=== PATIENT | female | born 1950 | race Caucasian/White ===

== ENCOUNTER 2016-05-06 08:55 | Outpatient (CLI) | payer MEDICARE ==
[2016-05-06 09:40] LABS: ALT (SGPT) 31 U/L (0-55); AST (SGOT) 32 U/L (5-34); Alkaline Phosphatase 157 U/L (40-150); Anion Gap 13 mmol/L (10-20); BUN (Urea Nitrogen) 30 mg/dL (9.8-20.1); Bilirubin, Total 2.2 mg/dL (0.2-1.2); Calc. Creatinine Clearance 0 mL/min (70-130); Calcium 8.4 mg/dL (7.8-10.44); Carbon Dioxide 19 mmol/L (23-31); Chloride 111 mmol/L (98-107); Estimated GFR-MDRD 42; Globulin 3.2 g/dL (2.4-3.5); Protein, Total 6.3 g/dL (5.8-8.1)
[2016-05-06 10:34] LABS: Hematocrit 27.1 % (36.0-47.0); Mean Platelet Volume 15.9 fL (7.4-10.4); Red Blood Cell (RBC) Count 3.17 mill/uL (4.20-5.40); White Blood Cell (WBC) Count 4.4 thou/uL (4.8-10.8)
[2016-05-06 10:36] LABS: Anisocytosis SLIGHT = 6-15 cells (100X) (0-5/hpf); Band 4 % (5-11); Blast 1 % (0-0); Hypochromia SLIGHT = 6-15 cells (100X) (0-5/hpf); Neutrophil 82 % (42-75)
== END 2016-05-06 08:56 | disposition home or self-care (01) ==
LOC: NAV LABSP 08:55
PROVIDERS: ATTEND Family Medicine
DX: I12.9 Hypertensive chronic kidney disease with stage 1 through stage 4 chronic kidney disease, or unspecified chronic kidney disease (principal); N18.3 Chronic kidney disease, stage 3 (moderate); E11.9 Type 2 diabetes mellitus without complications; R09.02 Hypoxemia
CPT/HCPCS: 36415; 80053; 83036; 84439; 84443; 85025

== ENCOUNTER 2016-05-09 07:32 | Outpatient (CLI) | payer MEDICARE, OTHER ==
[2016-05-09 10:01] LABS: Anisocytosis SLIGHT = 6-15 cells (100X) (0-5/hpf); Band 2 % (5-11); Hematocrit 26.1 % (36.0-47.0); Hypochromia SLIGHT = 6-15 cells (100X) (0-5/hpf); Mean Platelet Volume 13.8 fL (7.4-10.4); Red Blood Cell (RBC) Count 3.01 mill/uL (4.20-5.40); White Blood Cell (WBC) Count 3.3 thou/uL (4.8-10.8)
[2016-05-09 10:02] LABS: Neutrophil 75 % (42-75)
== END 2016-05-09 07:33 | disposition home or self-care (01) ==
LOC: NAV LABSP 07:32
PROVIDERS: ATTEND Family Medicine
DX: K74.69 Other cirrhosis of liver (principal); J96.91 Respiratory failure, unspecified with hypoxia; N18.3 Chronic kidney disease, stage 3 (moderate); I10 Essential (primary) hypertension; D69.1 Qualitative platelet defects; E11.9 Type 2 diabetes mellitus without complications
CPT/HCPCS: 36415; 85025

== ENCOUNTER 2016-05-30 16:30 | Outpatient (CLI) | payer MEDICARE ==
[2016-05-30 17:21] LABS: Anion Gap 15 mmol/L (10-20); BUN (Urea Nitrogen) 35 mg/dL (9.8-20.1); Calc. Creatinine Clearance 0 mL/min (70-130); Carbon Dioxide 20 mmol/L (23-31); Chloride 109 mmol/L (98-107); Estimated GFR-MDRD 38
== END 2016-05-30 16:31 | disposition home or self-care (01) ==
LOC: NAV LABSP 16:30
PROVIDERS: ATTEND Internal Medicine
DX: R60.9 Edema, unspecified (principal)
CPT/HCPCS: 80048

== ENCOUNTER 2016-06-07 12:06 | Outpatient (CLI) | payer MEDICARE ==
[2016-06-07 12:36] LABS: Anion Gap 15 mmol/L (10-20); BUN (Urea Nitrogen) 29 mg/dL (9.8-20.1); Calc. Creatinine Clearance 0 mL/min (70-130); Calcium 8.1 mg/dL (7.8-10.44); Carbon Dioxide 22 mmol/L (23-31); Chloride 112 mmol/L (98-107); Estimated GFR-MDRD 34
== END 2016-06-07 12:07 | disposition home or self-care (01) ==
LOC: NAV LABSP 12:06
PROVIDERS: ATTEND Internal Medicine
DX: E87.70 Fluid overload, unspecified (principal); I10 Essential (primary) hypertension
CPT/HCPCS: 36415; 80048

== ENCOUNTER 2016-06-08 07:22 | Outpatient (CLI) | payer MEDICARE ==
[2016-06-08 09:05] LABS: Anion Gap 13 mmol/L (10-20); BUN (Urea Nitrogen) 30 mg/dL (9.8-20.1); Calc. Creatinine Clearance 0 mL/min (70-130); Calcium 8.1 mg/dL (7.8-10.44); Carbon Dioxide 24 mmol/L (23-31); Chloride 112 mmol/L (98-107); Estimated GFR-MDRD 31
== END 2016-06-08 07:23 | disposition home or self-care (01) ==
LOC: NAV LABSP 07:22
PROVIDERS: ATTEND Internal Medicine
DX: I10 Essential (primary) hypertension (principal)
CPT/HCPCS: 36415; 80048

== ENCOUNTER 2016-06-09 07:13 | Outpatient (CLI) | payer MEDICARE ==
[2016-06-09 08:20] LABS: Anion Gap 11 mmol/L (10-20); BUN (Urea Nitrogen) 30 mg/dL (9.8-20.1); Calc. Creatinine Clearance 0 mL/min (70-130); Calcium 8.1 mg/dL (7.8-10.44); Carbon Dioxide 24 mmol/L (23-31); Chloride 112 mmol/L (98-107); Estimated GFR-MDRD 34
== END 2016-06-09 07:14 | disposition home or self-care (01) ==
LOC: NAV LABSP 07:13
PROVIDERS: ATTEND Internal Medicine
DX: I10 Essential (primary) hypertension (principal)
CPT/HCPCS: 36415; 80048

== ENCOUNTER 2016-06-10 09:52 | Outpatient (CLI) | payer MEDICARE ==
[2016-06-10 11:52] LABS: Anion Gap 16 mmol/L (10-20); BUN (Urea Nitrogen) 31 mg/dL (9.8-20.1); Calc. Creatinine Clearance 0 mL/min (70-130); Calcium 8.2 mg/dL (7.8-10.44); Carbon Dioxide 20 mmol/L (23-31); Chloride 113 mmol/L (98-107); Estimated GFR-MDRD 36
== END 2016-06-10 09:53 | disposition home or self-care (01) ==
LOC: NAV LAB 09:52
PROVIDERS: ATTEND Internal Medicine
DX: I10 Essential (primary) hypertension (principal)
CPT/HCPCS: 36415; 80048

== ENCOUNTER 2016-06-13 09:01 | Outpatient (CLI) | payer MEDICARE ==
[2016-06-13 10:02] LABS: Anion Gap 15 mmol/L (10-20); BUN (Urea Nitrogen) 34 mg/dL (9.8-20.1); Calc. Creatinine Clearance 0 mL/min (70-130); Calcium 8.2 mg/dL (7.8-10.44); Carbon Dioxide 23 mmol/L (23-31); Chloride 111 mmol/L (98-107); Estimated GFR-MDRD 30
== END 2016-06-13 09:02 | disposition home or self-care (01) ==
LOC: NAV LABSP 09:01
PROVIDERS: ATTEND Internal Medicine
DX: K72.00 Acute and subacute hepatic failure without coma (principal)
CPT/HCPCS: 36415; 80048

== ENCOUNTER 2016-06-14 08:11 | Outpatient (CLI) | payer MEDICARE ==
[2016-06-14 09:56] LABS: Anion Gap 14 mmol/L (10-20); BUN (Urea Nitrogen) 37 mg/dL (9.8-20.1); Calc. Creatinine Clearance 0 mL/min (70-130); Calcium 8.3 mg/dL (7.8-10.44); Carbon Dioxide 24 mmol/L (23-31); Chloride 111 mmol/L (98-107); Estimated GFR-MDRD 26
== END 2016-06-14 08:12 | disposition home or self-care (01) ==
LOC: NAV LABSP 08:11
PROVIDERS: ATTEND Internal Medicine
DX: I10 Essential (primary) hypertension (principal)
CPT/HCPCS: 36415; 80048

== ENCOUNTER 2016-06-15 07:31 | Outpatient (CLI) | payer MEDICARE ==
[2016-06-15 10:05] LABS: Anion Gap 16 mmol/L (10-20); BUN (Urea Nitrogen) 39 mg/dL (9.8-20.1); Calc. Creatinine Clearance 0 mL/min (70-130); Calcium 8.3 mg/dL (7.8-10.44); Carbon Dioxide 24 mmol/L (23-31); Chloride 109 mmol/L (98-107); Estimated GFR-MDRD 25
== END 2016-06-15 07:32 | disposition home or self-care (01) ==
LOC: NAV LABSP 07:31
PROVIDERS: ATTEND Internal Medicine
DX: I10 Essential (primary) hypertension (principal)
CPT/HCPCS: 36415; 80048

== ENCOUNTER 2016-06-16 07:34 | Outpatient (CLI) | payer MEDICARE ==
[2016-06-16 12:43] LABS: Anion Gap 17 mmol/L (10-20); BUN (Urea Nitrogen) 39 mg/dL (9.8-20.1); Calc. Creatinine Clearance 0 mL/min (70-130); Calcium 8.3 mg/dL (7.8-10.44); Carbon Dioxide 25 mmol/L (23-31); Chloride 107 mmol/L (98-107); Estimated GFR-MDRD 24
== END 2016-06-16 07:35 | disposition home or self-care (01) ==
LOC: NAV LABSP 07:34
PROVIDERS: ATTEND Internal Medicine
DX: I10 Essential (primary) hypertension (principal)
CPT/HCPCS: 36415; 80048

== ENCOUNTER 2016-06-17 07:50 | Outpatient (CLI) | payer MEDICARE ==
[2016-06-17 10:09] LABS: Anion Gap 16 mmol/L (10-20); BUN (Urea Nitrogen) 39 mg/dL (9.8-20.1); Calc. Creatinine Clearance 0 mL/min (70-130); Calcium 8.2 mg/dL (7.8-10.44); Carbon Dioxide 26 mmol/L (23-31); Chloride 108 mmol/L (98-107); Estimated GFR-MDRD 24
== END 2016-06-17 07:51 | disposition home or self-care (01) ==
LOC: NAV LABSP 07:50
PROVIDERS: ATTEND Internal Medicine
DX: I10 Essential (primary) hypertension (principal)
CPT/HCPCS: 36415; 80048

== ENCOUNTER 2016-06-20 09:07 | Outpatient (CLI) | payer MEDICARE ==
[2016-06-20 12:04] LABS: Anion Gap 15 mmol/L (10-20); BUN (Urea Nitrogen) 37 mg/dL (9.8-20.1); Calc. Creatinine Clearance 0 mL/min (70-130); Calcium 8.4 mg/dL (7.8-10.44); Carbon Dioxide 27 mmol/L (23-31); Chloride 108 mmol/L (98-107); Estimated GFR-MDRD 27
== END 2016-06-20 09:08 | disposition home or self-care (01) ==
LOC: NAV LABSP 09:07
PROVIDERS: ATTEND Internal Medicine
DX: I10 Essential (primary) hypertension (principal)
CPT/HCPCS: 36415; 80048

== ENCOUNTER 2016-06-21 07:56 | Outpatient (CLI) | payer MEDICARE ==
[2016-06-21 08:44] LABS: Anion Gap 16 mmol/L (10-20); BUN (Urea Nitrogen) 37 mg/dL (9.8-20.1); Calc. Creatinine Clearance 0 mL/min (70-130); Calcium 8.1 mg/dL (7.8-10.44); Carbon Dioxide 26 mmol/L (23-31); Chloride 107 mmol/L (98-107); Estimated GFR-MDRD 29
== END 2016-06-21 07:57 | disposition home or self-care (01) ==
LOC: NAV LABSP 07:56
PROVIDERS: ATTEND Internal Medicine
DX: I10 Essential (primary) hypertension (principal)
CPT/HCPCS: 36415; 80048

== ENCOUNTER 2016-06-22 09:37 | Outpatient (CLI) | payer MEDICARE ==
[2016-06-22 11:07] LABS: Anion Gap 16 mmol/L (10-20); BUN (Urea Nitrogen) 39 mg/dL (9.8-20.1); Calc. Creatinine Clearance 0 mL/min (70-130); Calcium 8.1 mg/dL (7.8-10.44); Carbon Dioxide 24 mmol/L (23-31); Chloride 106 mmol/L (98-107); Estimated GFR-MDRD 27
== END 2016-06-22 09:38 | disposition home or self-care (01) ==
LOC: NAV LABSP 09:37
PROVIDERS: ATTEND Internal Medicine
DX: I10 Essential (primary) hypertension (principal)
CPT/HCPCS: 36415; 80048

== ENCOUNTER 2016-07-04 08:41 | Outpatient (CLI) | payer MEDICARE ==
[2016-07-04 09:38] LABS: Anion Gap 15 mmol/L (10-20); BUN (Urea Nitrogen) 28 mg/dL (9.8-20.1); Calc. Creatinine Clearance 0 mL/min (70-130); Calcium 8.2 mg/dL (7.8-10.44); Carbon Dioxide 23 mmol/L (23-31); Chloride 109 mmol/L (98-107); Estimated GFR-MDRD 38; Potassium 3.9 mmol/L (3.5-5.1); Sodium 143 mmol/L (136-145)
[2016-07-04 10:27] LABS: Glucose 54 mg/dL (80-115)
[2016-07-04 12:16] LABS: Anisocytosis SLIGHT = 6-15 cells (100X) (0-5/hpf); Band 2 % (5-11); Eosinophils 10 % (0-10); Hemoglobin 7.4 g/dL (12.0-16.0); Hypochromia MODERATE=16-30 cells (100X) (0-5/hpf); Lymphocytes 16 % (21-51); MDiff Complete? YES; Macrocytosis SLIGHT = 6-15 cells (100X) (0-5/hpf); Mean Corpuscular HGB CONC 29.9 g/dL (32.0-36.0); Mean Corpuscular Hemoglobin 25.3 pg (27.0-31.0); Mean Corpuscular Volume 84.6 fl (81.0-99.0); Mean Platelet Volume 12.6 fL (7.4-10.4); Monocytes 1 % (0-10); Neutrophil 71 % (42-75); Platelet Count 44 thou/uL (130-400); Red Blood Cell (RBC) Count 2.93 mill/uL (4.20-5.40); Reflex for Review?? NO; Tear Drops SLIGHT = 2-5 cells (100X) (0-1/hpf); White Blood Cell (WBC) Count 2.4 thou/uL (4.8-10.8)
[2016-07-04 12:17] LABS: PLT Morphology Comment Appears Decreased
== END 2016-07-04 08:42 | disposition home or self-care (01) ==
LOC: NAV LABSP 08:41
PROVIDERS: ATTEND Internal Medicine
DX: I10 Essential (primary) hypertension (principal)
CPT/HCPCS: 36415; 80048; 83880; 85025

== ENCOUNTER 2016-07-05 07:49 | Outpatient (CLI) | payer MEDICARE ==
[2016-07-05 10:01] LABS: Anion Gap 13 mmol/L (10-20); BUN (Urea Nitrogen) 28 mg/dL (9.8-20.1); Calc. Creatinine Clearance 0 mL/min (70-130); Calcium 8.2 mg/dL (7.8-10.44); Carbon Dioxide 24 mmol/L (23-31); Chloride 106 mmol/L (98-107); Estimated GFR-MDRD 36; Glucose 155 mg/dL (80-115); Potassium 4.4 mmol/L (3.5-5.1); Sodium 139 mmol/L (136-145)
[2016-07-05 11:13] LABS: Reticulocyte Count 2.8 % (0.5-1.5)
[2016-07-05 13:54] LABS: ALT (SGPT) 20 U/L (0-55); AST (SGOT) 23 U/L (5-34); Alkaline Phosphatase 130 U/L (40-150); Bilirubin, Total 1.4 mg/dL (0.2-1.2); Globulin 3.8 g/dL (2.4-3.5); Protein, Total 6.8 g/dL (5.8-8.1)
[2016-07-05 18:10] LABS: Folate (Folic Acid) 13.8 ng/mL (7.0-31.4)
== END 2016-07-05 07:50 | disposition home or self-care (01) ==
LOC: NAV LABSP 07:49
PROVIDERS: ATTEND Internal Medicine
DX: I10 Essential (primary) hypertension (principal); K72.00 Acute and subacute hepatic failure without coma; D53.9 Nutritional anemia, unspecified; D53.8 Other specified nutritional anemias
CPT/HCPCS: 36415; 80053; 82607; 82728; 82746; 84443; 85046

== ENCOUNTER 2016-07-07 07:15 | Outpatient (CLI) | payer MEDICARE ==
[2016-07-07 08:34] LABS: Bilirubin Negative (Negative); Blood, Urine Negative (Negative); Clarity Clear (Clear); Glucose, Urine (Dipstick) Negative (Negative); Leukocyte Negative (Negative); Nitrite Negative (Negative); Protein, Urine (Dipstick) Negative (Neg-Trace); pH, Urine 5.5 (5.0-9.0)
== END 2016-07-07 07:16 | disposition home or self-care (01) ==
LOC: NAV LABSP 07:15
PROVIDERS: ATTEND Internal Medicine
DX: R82.99 Other abnormal findings in urine (principal)
CPT/HCPCS: 81003; 87077; 87086; 87186

== ENCOUNTER 2016-07-27 22:50 | Outpatient (CLI) | payer MEDICARE ==
[2016-07-27 23:23] LABS: ALT (SGPT) 21 U/L (0-55); AST (SGOT) 19 U/L (5-34); Albumin 3.7 g/dL (3.4-4.8); Alkaline Phosphatase 154 U/L (40-150); Anion Gap 19 mmol/L (10-20); BUN (Urea Nitrogen) 58 mg/dL (9.8-20.1); Bilirubin, Total 1.7 mg/dL (0.2-1.2); Calcium 9.7 mg/dL (7.8-10.44); Carbon Dioxide 23 mmol/L (23-31); Chloride 99 mmol/L (98-107); Globulin 4.6 g/dL (2.4-3.5); Glucose 140 mg/dL (80-115); Potassium 3.8 mmol/L (3.5-5.1); Protein, Total 8.3 g/dL (5.8-8.1); Sodium 137 mmol/L (136-145)
[2016-07-27 23:34] LABS: #Basophils 0.2 thou/uL (0.0-0.2); #Eosinphils 0.2 thou/uL (0.0-0.7); #Lymphocytes 0.6 thou/uL (1.20-3.40); #Monocytes 1.1 thou/uL (0.11-0.59); #Neutrophils 7.1 thou/uL (1.40-6.50); %Basophils 2.3 % (0.0-1.0); %Eosinophils 1.7 % (0.0-10.0); %Lymphocytes 6.2 % (21.0-51.0); %Monocytes 12.1 % (0.0-10.0); %Neutrophils 77.7 % (42.0-75.0); Hemoglobin 11.8 g/dL (12.0-16.0); Hypochromia SLIGHT = 6-15 cells (100X) (0-5/hpf); MDiff Complete? YES; Mean Corpuscular HGB CONC 31.7 g/dL (32.0-36.0); Mean Corpuscular Hemoglobin 24.3 pg (27.0-31.0); Mean Corpuscular Volume 76.8 fl (81.0-99.0); Mean Platelet Volume 11.8 fL (7.4-10.4); Microcytosis MODERATE=15-30 cells (100X) (0-5/hpf); PLT Morphology Comment Appears Decreased; Platelet Count 62 thou/uL (130-400); RBC Distribution Width 16.7 % (11.5-14.5); Red Blood Cell (RBC) Count 4.85 mill/uL (4.20-5.40); White Blood Cell (WBC) Count 9.1 thou/uL (4.8-10.8)
[2016-07-27 23:40] LABS: Calc. Creatinine Clearance 0 mL/min (70-130); Estimated GFR-MDRD 23
== END 2016-07-27 22:51 | disposition home or self-care (01) ==
LOC: NAV LAB 22:50
PROVIDERS: ATTEND Internal Medicine
DX: R41.0 Disorientation, unspecified (principal)
CPT/HCPCS: 80053; 82140; 85025

== ENCOUNTER 2016-08-02 09:20 | Outpatient (CLI) | payer MEDICARE ==
[2016-08-02 12:53] LABS: Bilirubin Negative (Negative); Blood, Urine Trace (Negative); Clarity Clear (Clear); Glucose, Urine (Dipstick) Negative (Negative); Leukocyte Trace (Negative); Nitrite Negative (Negative); Protein, Urine (Dipstick) Negative (Neg-Trace); Urobilinogen 0.2 mg/dL (0.2-1.0); pH, Urine 6.5 (5.0-9.0)
[2016-08-02 13:45] LABS: Bacteria/HPF Rare-Few HPF (None Seen); Other Microscopic Description NO; RBC/HPF 0-3 HPF (0-3); WBC/HPF 0-3 HPF (0-3)
[2016-08-02 17:35] LABS: Anion Gap 22 mmol/L (10-20); Calc. Creatinine Clearance 0 mL/min (70-130); Calcium 9.5 mg/dL (7.8-10.44); Carbon Dioxide 22 mmol/L (23-31); Chloride 97 mmol/L (98-107); Estimated GFR-MDRD 11; Glucose 177 mg/dL (80-115); Potassium 5.3 mmol/L (3.5-5.1); Sodium 136 mmol/L (136-145)
[2016-08-02 17:40] LABS: BUN (Urea Nitrogen) 111 mg/dL (9.8-20.1)
[2016-08-02 17:52] LABS: #Basophils 0.1 thou/uL (0.0-0.2); #Eosinphils 0.2 thou/uL (0.0-0.7); #Monocytes 0.7 thou/uL (0.11-0.59); #Neutrophils 5.3 thou/uL (1.40-6.50); %Basophils 1.2 % (0.0-1.0); %Eosinophils 2.2 % (0.0-10.0); %Lymphocytes 13.6 % (21.0-51.0); %Monocytes 9.9 % (0.0-10.0); %Neutrophils 73.2 % (42.0-75.0); Hemoglobin 12.7 g/dL (12.0-16.0); Hypochromia SLIGHT = 6-15 cells (100X) (0-5/hpf); MDiff Complete? YES; Mean Corpuscular HGB CONC 31.2 g/dL (32.0-36.0); Mean Corpuscular Hemoglobin 24.2 pg (27.0-31.0); Mean Corpuscular Volume 77.5 fl (81.0-99.0); Microcytosis SLIGHT = 6-15 cells (100X) (0-5/hpf); PLT Morphology Comment Appears Decreased; Platelet Count 58 thou/uL (130-400); RBC Distribution Width 17.4 % (11.5-14.5); Red Blood Cell (RBC) Count 5.25 mill/uL (4.20-5.40); White Blood Cell (WBC) Count 7.2 thou/uL (4.8-10.8)
== END 2016-08-02 09:21 | disposition home or self-care (01) ==
LOC: NAV LABSP 09:20
PROVIDERS: ATTEND Internal Medicine
DX: R41.82 Altered mental status, unspecified (principal); K72.00 Acute and subacute hepatic failure without coma; N39.0 Urinary tract infection, site not specified
CPT/HCPCS: 36415; 80048; 81001; 82140; 85025; 87086

== ENCOUNTER 2016-08-03 16:09 | Outpatient (CLI) | payer MEDICARE ==
[2016-08-03 16:43] LABS: Anion Gap 21 mmol/L (10-20); BUN (Urea Nitrogen) 111 mg/dL (9.8-20.1); Calc. Creatinine Clearance 0 mL/min (70-130); Calcium 9.6 mg/dL (7.8-10.44); Carbon Dioxide 24 mmol/L (23-31); Chloride 103 mmol/L (98-107); Estimated GFR-MDRD 12; Glucose 79 mg/dL (80-115); Potassium 4.6 mmol/L (3.5-5.1); Sodium 143 mmol/L (136-145)
== END 2016-08-03 16:10 | disposition home or self-care (01) ==
LOC: NAV LABSP 16:09
PROVIDERS: ATTEND Internal Medicine
DX: R41.82 Altered mental status, unspecified (principal)
CPT/HCPCS: 80048

== ENCOUNTER 2016-08-04 07:31 | Outpatient (CLI) | payer MEDICARE ==
[2016-08-04 09:10] LABS: Anion Gap 18 mmol/L (10-20); Calc. Creatinine Clearance 0 mL/min (70-130); Calcium 9.1 mg/dL (7.8-10.44); Carbon Dioxide 23 mmol/L (23-31); Chloride 104 mmol/L (98-107); Estimated GFR-MDRD 13; Glucose 102 mg/dL (80-115); Potassium 4.4 mmol/L (3.5-5.1); Sodium 141 mmol/L (136-145)
[2016-08-04 10:08] LABS: BUN (Urea Nitrogen) 107 mg/dL (9.8-20.1)
== END 2016-08-04 07:32 | disposition home or self-care (01) ==
LOC: NAV LABSP 07:31
PROVIDERS: ATTEND Internal Medicine
DX: R41.82 Altered mental status, unspecified (principal)
CPT/HCPCS: 36415; 80048

== ENCOUNTER 2016-08-05 07:37 | Outpatient (CLI) | payer MEDICARE ==
[2016-08-05 11:59] LABS: Anion Gap 12 mmol/L (10-20); BUN (Urea Nitrogen) 84 mg/dL (9.8-20.1); Calc. Creatinine Clearance 0 mL/min (70-130); Calcium 8.4 mg/dL (7.8-10.44); Carbon Dioxide 24 mmol/L (23-31); Chloride 108 mmol/L (98-107); Estimated GFR-MDRD 21; Potassium 3.9 mmol/L (3.5-5.1); Sodium 140 mmol/L (136-145)
[2016-08-05 12:50] LABS: Glucose 40 mg/dL (80-115)
== END 2016-08-05 07:38 | disposition home or self-care (01) ==
LOC: NAV LABSP 07:37
PROVIDERS: ATTEND Internal Medicine
DX: N18.6 End stage renal disease (principal); R41.82 Altered mental status, unspecified
CPT/HCPCS: 36415; 80048

== ENCOUNTER 2016-08-11 07:27 | Outpatient (CLI) | payer MEDICARE ==
[2016-08-11 08:55] LABS: Anion Gap 10 mmol/L (10-20); BUN (Urea Nitrogen) 16 mg/dL (9.8-20.1); Calc. Creatinine Clearance 0 mL/min (70-130); Calcium 7.5 mg/dL (7.8-10.44); Carbon Dioxide 18 mmol/L (23-31); Chloride 119 mmol/L (98-107); Estimated GFR-MDRD 66; Glucose 85 mg/dL (80-115); Potassium 3.8 mmol/L (3.5-5.1); Sodium 143 mmol/L (136-145)
== END 2016-08-11 07:28 | disposition home or self-care (01) ==
LOC: NAV LABSP 07:27
PROVIDERS: ATTEND Internal Medicine
DX: R41.82 Altered mental status, unspecified (principal); I10 Essential (primary) hypertension
CPT/HCPCS: 36415; 80048

== ENCOUNTER 2016-08-12 07:20 | Outpatient (CLI) | payer MEDICARE ==
[2016-08-12 08:28] LABS: Anion Gap 11 mmol/L (10-20); BUN (Urea Nitrogen) 16 mg/dL (9.8-20.1); Calc. Creatinine Clearance 0 mL/min (70-130); Calcium 7.6 mg/dL (7.8-10.44); Carbon Dioxide 17 mmol/L (23-31); Chloride 119 mmol/L (98-107); Estimated GFR-MDRD 70; Glucose 79 mg/dL (80-115); Potassium 3.7 mmol/L (3.5-5.1); Sodium 143 mmol/L (136-145)
== END 2016-08-12 07:21 | disposition home or self-care (01) ==
LOC: NAV LABSP 07:20
PROVIDERS: ATTEND Internal Medicine
DX: I10 Essential (primary) hypertension (principal)
CPT/HCPCS: 36415; 80048

== ENCOUNTER 2016-08-15 08:24 | Outpatient (CLI) | payer MEDICARE ==
[2016-08-15 09:24] LABS: Anion Gap 10 mmol/L (10-20); BUN (Urea Nitrogen) 11 mg/dL (9.8-20.1); Calc. Creatinine Clearance 0 mL/min (70-130); Calcium 7.6 mg/dL (7.8-10.44); Carbon Dioxide 19 mmol/L (23-31); Chloride 116 mmol/L (98-107); Estimated GFR-MDRD 75; Glucose 113 mg/dL (80-115); Potassium 4.1 mmol/L (3.5-5.1); Sodium 141 mmol/L (136-145)
== END 2016-08-15 08:25 | disposition home or self-care (01) ==
LOC: NAV LABSP 08:24
PROVIDERS: ATTEND Internal Medicine
DX: I10 Essential (primary) hypertension (principal)
CPT/HCPCS: 36415; 80048

== ENCOUNTER 2016-08-17 08:11 | Outpatient (CLI) | payer MEDICARE ==
[2016-08-17 10:06] LABS: Anion Gap 11 mmol/L (10-20); BUN (Urea Nitrogen) 13 mg/dL (9.8-20.1); Calc. Creatinine Clearance 0 mL/min (70-130); Calcium 7.5 mg/dL (7.8-10.44); Carbon Dioxide 19 mmol/L (23-31); Chloride 112 mmol/L (98-107); Estimated GFR-MDRD 66; Glucose 157 mg/dL (80-115); Sodium 138 mmol/L (136-145)
== END 2016-08-17 08:12 | disposition home or self-care (01) ==
LOC: NAV LABSP 08:11
PROVIDERS: ATTEND Internal Medicine
DX: I10 Essential (primary) hypertension (principal)
CPT/HCPCS: 36415; 80048

== ENCOUNTER 2016-08-18 07:32 | Outpatient (CLI) | payer MEDICARE ==
[2016-08-18 08:33] LABS: Anion Gap 10 mmol/L (10-20); BUN (Urea Nitrogen) 15 mg/dL (9.8-20.1); Calc. Creatinine Clearance 0 mL/min (70-130); Calcium 7.5 mg/dL (7.8-10.44); Carbon Dioxide 19 mmol/L (23-31); Chloride 112 mmol/L (98-107); Estimated GFR-MDRD 70; Glucose 117 mg/dL (80-115); Sodium 137 mmol/L (136-145)
== END 2016-08-18 07:33 | disposition home or self-care (01) ==
LOC: NAV LABSP 07:32
PROVIDERS: ATTEND Internal Medicine
DX: I10 Essential (primary) hypertension (principal)
CPT/HCPCS: 36415; 80048

== ENCOUNTER 2016-08-19 07:20 | Outpatient (CLI) | payer MEDICARE ==
[2016-08-19 10:36] LABS: Anion Gap 10 mmol/L (10-20); BUN (Urea Nitrogen) 16 mg/dL (9.8-20.1); Calc. Creatinine Clearance 0 mL/min (70-130); Calcium 7.5 mg/dL (7.8-10.44); Carbon Dioxide 20 mmol/L (23-31); Chloride 111 mmol/L (98-107); Estimated GFR-MDRD 70; Glucose 106 mg/dL (80-115); Potassium 3.9 mmol/L (3.5-5.1); Sodium 137 mmol/L (136-145)
== END 2016-08-19 07:21 | disposition home or self-care (01) ==
LOC: NAV LABSP 07:20
PROVIDERS: ATTEND Internal Medicine
DX: I10 Essential (primary) hypertension (principal)
CPT/HCPCS: 36415; 80048

== ENCOUNTER 2016-08-22 12:11 | Outpatient (CLI) | payer MEDICARE ==
[2016-08-22 13:40] LABS: Anion Gap 9 mmol/L (10-20); BUN (Urea Nitrogen) 12 mg/dL (9.8-20.1); Calc. Creatinine Clearance 0 mL/min (70-130); Calcium 7.6 mg/dL (7.8-10.44); Carbon Dioxide 22 mmol/L (23-31); Chloride 112 mmol/L (98-107); Estimated GFR-MDRD 68; Glucose 104 mg/dL (80-115); Potassium 3.9 mmol/L (3.5-5.1); Sodium 139 mmol/L (136-145)
== END 2016-08-22 12:12 | disposition home or self-care (01) ==
LOC: NAV LABSP 12:11
PROVIDERS: ATTEND Internal Medicine
DX: I10 Essential (primary) hypertension (principal)
CPT/HCPCS: 36415; 80048

== ENCOUNTER 2016-08-23 07:18 | Outpatient (CLI) | payer MEDICARE ==
[2016-08-23 08:33] LABS: Anion Gap 10 mmol/L (10-20); BUN (Urea Nitrogen) 14 mg/dL (9.8-20.1); Calc. Creatinine Clearance 0 mL/min (70-130); Calcium 7.7 mg/dL (7.8-10.44); Carbon Dioxide 22 mmol/L (23-31); Chloride 112 mmol/L (98-107); Estimated GFR-MDRD 65; Glucose 70 mg/dL (80-115); Potassium 4.2 mmol/L (3.5-5.1); Sodium 140 mmol/L (136-145)
== END 2016-08-23 07:19 | disposition home or self-care (01) ==
LOC: NAV LABSP 07:18
PROVIDERS: ATTEND Internal Medicine
DX: I10 Essential (primary) hypertension (principal)
CPT/HCPCS: 36415; 80048

== ENCOUNTER 2016-08-24 08:45 | Outpatient (CLI) | payer MEDICARE ==
[2016-08-24 10:30] LABS: Anion Gap 12 mmol/L (10-20); BUN (Urea Nitrogen) 14 mg/dL (9.8-20.1); Calc. Creatinine Clearance 0 mL/min (70-130); Calcium 7.8 mg/dL (7.8-10.44); Carbon Dioxide 20 mmol/L (23-31); Chloride 112 mmol/L (98-107); Estimated GFR-MDRD 58; Glucose 67 mg/dL (80-115); Potassium 4.1 mmol/L (3.5-5.1); Sodium 140 mmol/L (136-145)
== END 2016-08-24 08:46 | disposition home or self-care (01) ==
LOC: NAV LABSP 08:45
PROVIDERS: ATTEND Internal Medicine
DX: I10 Essential (primary) hypertension (principal)
CPT/HCPCS: 36415; 80048

== ENCOUNTER 2016-09-09 07:29 | Outpatient (CLI) | payer MEDICARE ==
[2016-09-09 10:45] LABS: Anion Gap 10 mmol/L (10-20); BUN (Urea Nitrogen) 16 mg/dL (9.8-20.1); Calc. Creatinine Clearance 0 mL/min (70-130); Calcium 7.8 mg/dL (7.8-10.44); Carbon Dioxide 22 mmol/L (23-31); Chloride 114 mmol/L (98-107); Estimated GFR-MDRD 66; Glucose 99 mg/dL (80-115); Potassium 4.4 mmol/L (3.5-5.1); Sodium 142 mmol/L (136-145)
== END 2016-09-09 07:30 | disposition home or self-care (01) ==
LOC: NAV LABSP 07:29
PROVIDERS: ATTEND Internal Medicine
DX: I10 Essential (primary) hypertension (principal)
CPT/HCPCS: 36415; 80048

== ENCOUNTER 2016-09-12 09:02 | Outpatient (CLI) | payer MEDICARE ==
[2016-09-12 10:45] LABS: Anion Gap 17 mmol/L (10-20); BUN (Urea Nitrogen) 20 mg/dL (9.8-20.1); Calc. Creatinine Clearance 0 mL/min (70-130); Calcium 8.3 mg/dL (7.8-10.44); Carbon Dioxide 27 mmol/L (23-31); Chloride 104 mmol/L (98-107); Estimated GFR-MDRD 47; Glucose 77 mg/dL (80-115); Potassium 4.2 mmol/L (3.5-5.1); Sodium 144 mmol/L (136-145)
== END 2016-09-12 09:03 | disposition home or self-care (01) ==
LOC: NAV LABSP 09:02
PROVIDERS: ATTEND Internal Medicine
DX: I10 Essential (primary) hypertension (principal)
CPT/HCPCS: 36415; 80048

== ENCOUNTER 2016-09-16 07:23 | Outpatient (CLI) | payer MEDICARE ==
[2016-09-16 08:47] LABS: Anion Gap 16 mmol/L (10-20); BUN (Urea Nitrogen) 25 mg/dL (9.8-20.1); Calc. Creatinine Clearance 0 mL/min (70-130); Calcium 8.3 mg/dL (7.8-10.44); Carbon Dioxide 24 mmol/L (23-31); Chloride 102 mmol/L (98-107); Estimated GFR-MDRD 37; Glucose 199 mg/dL (80-115); Potassium 3.9 mmol/L (3.5-5.1); Sodium 138 mmol/L (136-145)
[2016-09-16 09:44] LABS: Bilirubin Negative (Negative); Blood, Urine Large (Negative); Clarity Clear (Clear); Glucose, Urine (Dipstick) Negative (Negative); Leukocyte Small (Negative); Nitrite Positive (Negative); Protein, Urine (Dipstick) Negative (Neg-Trace); Specific Gravity, Urine 1.015 (1.005-1.030); pH, Urine 8.5 (5.0-9.0)
[2016-09-16 10:01] LABS: Bacteria/HPF 2+ HPF (None Seen); Other Microscopic Description NO; RBC/HPF 0-3 HPF (0-3); Squamous Epithelial 0-3 HPF (0-3)
== END 2016-09-16 07:24 | disposition home or self-care (01) ==
LOC: NAV LABSP 07:23
PROVIDERS: ATTEND Internal Medicine
DX: K72.00 Acute and subacute hepatic failure without coma (principal); Z79.899 Other long term (current) drug therapy
CPT/HCPCS: 36415; 80048; 81001; 87077; 87086; 87186

== ENCOUNTER 2016-09-20 08:31 | Outpatient (CLI) | payer MEDICARE ==
[2016-09-20 12:25] LABS: Anion Gap 12 mmol/L (10-20); BUN (Urea Nitrogen) 31 mg/dL (9.8-20.1); Calc. Creatinine Clearance 0 mL/min (70-130); Calcium 8.2 mg/dL (7.8-10.44); Carbon Dioxide 27 mmol/L (23-31); Chloride 102 mmol/L (98-107); Estimated GFR-MDRD 37; Glucose 181 mg/dL (80-115); Potassium 4.1 mmol/L (3.5-5.1); Sodium 137 mmol/L (136-145)
== END 2016-09-20 08:32 | disposition home or self-care (01) ==
LOC: NAV LABSP 08:31
PROVIDERS: ATTEND Internal Medicine
DX: I10 Essential (primary) hypertension (principal)
CPT/HCPCS: 36415; 80048

== ENCOUNTER 2016-09-23 08:18 | Outpatient (CLI) | payer MEDICARE ==
[2016-09-23 08:40] LABS: Anion Gap 16 mmol/L (10-20); BUN (Urea Nitrogen) 41 mg/dL (9.8-20.1); Calc. Creatinine Clearance 0 mL/min (70-130); Calcium 8.2 mg/dL (7.8-10.44); Carbon Dioxide 25 mmol/L (23-31); Chloride 101 mmol/L (98-107); Estimated GFR-MDRD 34; Glucose 143 mg/dL (80-115); Potassium 4.1 mmol/L (3.5-5.1); Sodium 138 mmol/L (136-145)
== END 2016-09-23 08:19 | disposition home or self-care (01) ==
LOC: NAV LABSP 08:18
PROVIDERS: ATTEND Internal Medicine
DX: I10 Essential (primary) hypertension (principal)
CPT/HCPCS: 36415; 80048

== ENCOUNTER 2016-11-01 08:29 | Outpatient (CLI) | payer MEDICARE ==
[2016-11-01 09:24] LABS: Hemoglobin A1c 6.9 % (4.0-6.0)
[2016-11-01 09:26] LABS: Anion Gap 13 mmol/L (10-20); BUN (Urea Nitrogen) 30 mg/dL (9.8-20.1); Calc. Creatinine Clearance 0 mL/min (70-130); Calcium 7.9 mg/dL (7.8-10.44); Carbon Dioxide 21 mmol/L (23-31); Chloride 110 mmol/L (98-107); Estimated GFR-MDRD 55; Glucose 221 mg/dL (80-115); Sodium 140 mmol/L (136-145)
[2016-11-01 10:49] LABS: #Eosinphils 0.1 thou/uL (0.0-0.7); #Lymphocytes 0.3 thou/uL (1.20-3.40); #Monocytes 0.2 thou/uL (0.11-0.59); #Neutrophils 1.3 thou/uL (1.40-6.50); %Basophils 1.7 % (0.0-1.0); %Eosinophils 4.3 % (0.0-10.0); %Lymphocytes 16.3 % (21.0-51.0); %Monocytes 10.4 % (0.0-10.0); %Neutrophils 67.3 % (42.0-75.0); Hemoglobin 7.1 g/dL (12.0-16.0); MDiff Complete? YES; Mean Corpuscular HGB CONC 30.8 g/dL (32.0-36.0); Mean Corpuscular Volume 84.5 fl (81.0-99.0); Mean Platelet Volume 13.7 fL (7.4-10.4); Platelet Count 31 thou/uL (130-400); Red Blood Cell (RBC) Count 2.72 mill/uL (4.20-5.40)
[2016-11-01 10:51] LABS: Anisocytosis SLIGHT = 6-15 cells (100X) (0-5/hpf); Elliptocytes SLIGHT = 2-5 cells (100X) (0-1/hpf); Helmet Cells SLIGHT = 2-5 cells (100X) (0-1/hpf); Hypochromia SLIGHT = 6-15 cells (100X) (0-5/hpf); PLT Morphology Comment Appears Decreased; Target Cells MODERATE= 6-15 cells (100X) (0-1/hpf)
== END 2016-11-01 08:30 | disposition home or self-care (01) ==
LOC: NAV LABSP 08:29
PROVIDERS: ATTEND Internal Medicine
DX: E11.9 Type 2 diabetes mellitus without complications (principal); K72.00 Acute and subacute hepatic failure without coma
CPT/HCPCS: 36415; 80048; 83036; 85025

== ENCOUNTER 2016-12-19 10:43 | Outpatient (CLI) | payer MEDICARE ==
[2016-12-19 11:06] LABS: ALT (SGPT) 14 U/L (8-55); AST (SGOT) 22 U/L (5-34); Albumin 3.3 g/dL (3.4-4.8); Alkaline Phosphatase 117 U/L (40-150); Anion Gap 16 mmol/L (10-20); BUN (Urea Nitrogen) 26 mg/dL (9.8-20.1); Bilirubin, Total 1.1 mg/dL (0.2-1.2); Calc. Creatinine Clearance 0 mL/min (70-130); Carbon Dioxide 20 mmol/L (23-31); Chloride 110 mmol/L (98-107); Estimated GFR-MDRD 40; Globulin 4.2 g/dL (2.4-3.5); Glucose 122 mg/dL (80-115); Potassium 4.5 mmol/L (3.5-5.1); Protein, Total 7.5 g/dL (6.0-8.3); Sodium 141 mmol/L (136-145)
[2016-12-19 11:08] LABS: #Basophils 0.1 thou/uL (0.0-0.2); #Eosinphils 0.1 thou/uL (0.0-0.7); #Lymphocytes 0.4 thou/uL (1.20-3.40); #Monocytes 0.2 thou/uL (0.11-0.59); #Neutrophils 2.1 thou/uL (1.40-6.50); %Basophils 2.1 % (0.0-1.0); %Eosinophils 4.2 % (0.0-10.0); %Lymphocytes 13.4 % (21.0-51.0); %Monocytes 6.7 % (0.0-10.0); %Neutrophils 73.6 % (42.0-75.0); Hemoglobin 8.3 g/dL (12.0-16.0); Mean Corpuscular HGB CONC 30.3 g/dL (32.0-36.0); Mean Corpuscular Hemoglobin 24.7 pg (27.0-31.0); Mean Corpuscular Volume 81.4 fl (81.0-99.0); Mean Platelet Volume 11.4 fL (7.4-10.4); Platelet Count 37 thou/uL (130-400); RBC Distribution Width 16.5 % (11.5-14.5); Red Blood Cell (RBC) Count 3.35 mill/uL (4.20-5.40); White Blood Cell (WBC) Count 2.9 thou/uL (4.8-10.8)
[2016-12-19 11:09] LABS: Anisocytosis SLIGHT = 6-15 cells (100X) (0-5/hpf); Hypochromia SLIGHT = 6-15 cells (100X) (0-5/hpf); MDiff Complete? YES; PLT Morphology Comment Appears Decreased
[2016-12-19 11:11] LABS: Troponin I 0.014 ng/mL (< 0.028)
== END 2016-12-19 10:44 | disposition home or self-care (01) ==
LOC: NAV LABSP 10:43
PROVIDERS: ATTEND Internal Medicine
DX: K72.00 Acute and subacute hepatic failure without coma (principal); I10 Essential (primary) hypertension
CPT/HCPCS: 36415; 80053; 84484; 85025

== ENCOUNTER 2017-01-04 07:46 | Outpatient (CLI) | payer MEDICARE ==
[2017-01-04 09:22] LABS: Bilirubin Negative (Negative); Blood, Urine Moderate (Negative); Clarity Cloudy (Clear); Glucose, Urine (Dipstick) Negative (Negative); Leukocyte Large (Negative); Nitrite Negative (Negative); Protein, Urine (Dipstick) 100 mg/dL (Neg-Trace); Specific Gravity, Urine 1.025 (1.005-1.030); pH, Urine 5.5 (5.0-9.0)
[2017-01-04 09:53] LABS: Bacteria/HPF 4+ HPF (None Seen); Squamous Epithelial 0-3 HPF (0-3)
== END 2017-01-04 07:47 | disposition home or self-care (01) ==
LOC: NAV LABSP 07:46
PROVIDERS: ATTEND Family Medicine
DX: K72.90 Hepatic failure, unspecified without coma (principal); I10 Essential (primary) hypertension; E11.9 Type 2 diabetes mellitus without complications
CPT/HCPCS: 81001; 87077; 87086; 87186